=== PATIENT | female | born 1960 | race Caucasian/White ===

== ENCOUNTER 2024-09-19 20:16 | Observation (INO) | payer BC ==
[2024-09-19] MEDS: SODIUM CHLORIDE 0.9% 500 ML INFUS.BAG IV ONE (20:44)
[2024-09-19] MEDS ORDERED: FAMOTIDINE 20 MG/50 ML IVPB 20 MG/50 ML MG IVPB ONE (20:47)
[2024-09-19] MEDS: FAMOTIDINE 20 MG/50 ML IVPB 20 MG/50 ML MG IVPB ONE (20:49)
[2024-09-19 20:56] LABS: ABSOLUTE IMMATURE GRANULOCYTES 0.11 x10^3/uL (0.0-0.031); BASOPHILS # 0.03 x10^3/uL (0.01-0.08); EOSINOPHIL % 0.1 % (0.7-5.8); EOSINOPHILS # 0.01 x10^3/uL (0.04-0.36); MCHC 34.3 g/dl (32.2-35.5); MEAN CELL VOLUME 87.1 fl (79.4-94.8); MEAN PLT VOLUME 10.1 fl (9.4-12.3); MONOCYTE # 1.46 x10^3/uL (0.24-0.86); MONOCYTE % 9.3 % (4.7-12.5); RDW 13.1 % (12.4-16.4)
[2024-09-19] MEDS ORDERED: ONDANSETRON 4 MG/2 ML VIAL ONE (21:00)
[2024-09-19] MEDS: ONDANSETRON 4 MG/2 ML VIAL IVPB ONE (21:11)
[2024-09-19 21:17] LABS: ALK PHOS 47 U/L (45-117); CO2 21 mmol/L (21-32); CREATININE 0.7 mg/dl (0.6-1.3); GLUCOSE,RANDOM 172 mg/dl (74-106); SGOT/AST 11 U/L (15-37); SGPT/ALT 9 U/L (7-52); TOT PROT 5.5 g/dl (6.4-8.2)
[2024-09-19 22:17] LABS: EPITHELIAL CELLS 0-5 /hpf
[2024-09-20 00:55] VITALS: BMI 37.4
[2024-09-20] MEDS ORDERED: ONDANSETRON 4 MG/2 ML VIAL IVPUSH PRN (03:00)
[2024-09-20] MEDS: SODIUM CHLORIDE 1,000 ML IV SCH (03:04)
[2024-09-20 06:47] VITALS: RESP 18
[2024-09-20] MEDS ORDERED: ACETAMINOPHEN 1000 MG/100 ML BAG IVPB PRN (07:03)
[2024-09-20] MEDS: LEVOTHYROXINE NA 75 MCG TABLET (FP) PO SCH (07:13)
[2024-09-20 07:46] LABS: ABSOLUTE IMMATURE GRANULOCYTES 0.07 x10^3/uL (0.0-0.031); BASOPHILS # 0.04 x10^3/uL (0.01-0.08); EOSINOPHIL % 0.1 % (0.7-5.8); EOSINOPHILS # 0.01 x10^3/uL (0.04-0.36); MCHC 34.2 g/dl (32.2-35.5); MEAN CELL VOLUME 88.0 fl (79.4-94.8); MEAN PLT VOLUME 9.8 fl (9.4-12.3); MONOCYTE # 1.23 x10^3/uL (0.24-0.86); MONOCYTE % 10.4 % (4.7-12.5); RDW 13.3 % (12.4-16.4)
[2024-09-20] MEDS: ENALAPRIL MALEATE 5 MG TABLET PO SCH (09:27)
[2024-09-20 10:24] LABS: CO2 24.0 mmol/L (21-32); CREATININE 0.6 mg/dl (0.6-1.3); GLUCOSE,RANDOM 113.0 mg/dl (74-106)
[2024-09-20] MEDS: ATORVASTATIN CA 20 MG TABLET (FP) PO SCH (21:46)
[2024-09-21] MEDS: SENNOSIDES 8.6MG TABLET (FP) PO PRN (00:42)
[2024-09-21 07:47] LABS: ABSOLUTE IMMATURE GRANULOCYTES 0.07 x10^3/uL (0.0-0.031); BASOPHILS # 0.03 x10^3/uL (0.01-0.08); EOSINOPHIL % 0.9 % (0.7-5.8); EOSINOPHILS # 0.08 x10^3/uL (0.04-0.36); MCHC 33.8 g/dl (32.2-35.5); MEAN CELL VOLUME 89.1 fl (79.4-94.8); MEAN PLT VOLUME 9.9 fl (9.4-12.3); MONOCYTE # 0.84 x10^3/uL (0.24-0.86); MONOCYTE % 9.6 % (4.7-12.5); RDW 13.2 % (12.4-16.4)
[2024-09-21 08:12] LABS: CO2 30.0 mmol/L (21-32); CREATININE 0.5 mg/dl (0.6-1.3); GLUCOSE,RANDOM 114.0 mg/dl (74-106)
[2024-09-21] MEDS: MAGNESIUM OXIDE 400 MG TABLET (FP) PO ONE (09:33)
[2024-09-21 10:34] VITALS: BP 100/57; PULSE 88; TEMP 98.3
== END 2024-09-21 10:35 | disposition home or self-care (01) ==
LOC: FER 20:16 → FM/S 22:01 → UNDOADMOB 22:35 → FM/S 23:18
PROVIDERS: ADMIT Student in an Organized Health Care Education/Training Program; ATTEND Internal Medicine
PROC: 3E033GC Introduction of Other Therapeutic Substance into Peripheral Vein, Percutaneous Approach (ICD-10-PCS; principal; 2024-09-19)
PROC: 3E0337Z Introduction of Electrolytic and Water Balance Substance into Peripheral Vein, Percutaneous Approach (ICD-10-PCS; 2024-09-19)
DX: K52.9 Noninfective gastroenteritis and colitis, unspecified (principal); E86.0 Dehydration; E87.21 Acute metabolic acidosis; R11.10 Vomiting, unspecified; E78.5 Hyperlipidemia, unspecified; I10 Essential (primary) hypertension; E11.9 Type 2 diabetes mellitus without complications; E03.9 Hypothyroidism, unspecified; E66.01 Morbid (severe) obesity due to excess calories; R63.0 Anorexia
CPT/HCPCS: 36415; 71045-TC-FY; 74177-TC; 80048; 80053; 81003; 81015; 82962; 83735; 84100; 85025; 87040; 87086; 93005; 99285-25; G0378; Q9967